=== PATIENT | female | born 1975 | race Caucasian/White ===

== ENCOUNTER → 2016-09-15 | Outpatient (CLI) | payer BC ==
[~2016-09-15] MED LIST: ADVAIR IH; CELEXA20 MG PO; XANAX0.5 MG PO
== END ==
LOC: LAB 15:44
DX: D64.9 Anemia, unspecified (principal)

== ENCOUNTER → 2016-11-24 | Outpatient (CLI) | payer BC | LOC: LAB 12:15 | DX: N92.1 Excessive and frequent menstruation with irregular cycle (principal); D50.0 Iron deficiency anemia secondary to blood loss (chronic) ==

== ENCOUNTER → 2018-07-25 | Outpatient (CLI) | payer OTHER ==
[2018-07-18 11:04] VITALS: BP 120/76
[~2018-07-25] MED LIST changes: +MAXALT MLT10 MG PO; +MECLIZINE PO; +MIRALAX 255 GM255 GM PO; +PHENERGAN25 M4 RC
[2018-07-25 16:18] LABS: HEMATOCRIT 35.2 % (37.0-47.0); HEMOGLOBIN 10.5 g/dL (12.5-16.0); MEAN PLATELET VOLUME 10.7 fl (7.4-10.4); RED BLOOD COUNT 4.9 M/mm3 (4.10-5.30); WHITE BLOOD COUNT 9.6 K/mm3 (4.8-10.8)
[2018-07-25 16:26] LABS: CALCIUM 9.2 mg/dL (8.4-10.2); POTASSIUM 3.6 mmol/L (3.6-5.0); RED CELL DISTRIBUTION WIDTH 27.9 % (11.5-14.5)
== END ==
LOC: LAB 15:49
PROVIDERS: Nurse Practitioner Primary Care
DX: D64.9 Anemia, unspecified (principal)

== ENCOUNTER → 2018-08-08 | Outpatient (CLI) | payer SELFPAY ==
[2018-07-18 11:04] VITALS: BP 120/76
[2018-08-08 11:55] LABS: EOS # 0.2 (0.04-0.40); EOS % 1.5 % (1.0-5.0); HEMATOCRIT 35.2 % (37.0-47.0); HEMOGLOBIN 10.7 g/dL (12.5-16.0); LYMPH# 1.8 (1.50-4.00); MEAN CELL VOLUME 75 fl (78-100); MEAN CORPUSCULAR HGB CONC 30 g/dL (33-37); MEAN PLATELET VOLUME 9.9 fl (7.4-10.4); MONO # 0.7 (0.20-0.80); NEU # 7.6 (1.40-6.50); PLATELET COUNT 417 K/mm3 (130-400); RED BLOOD COUNT 4.69 M/mm3 (4.10-5.30); WHITE BLOOD COUNT 10.2 K/mm3 (4.8-10.8)
[2018-08-08 12:14] LABS: ALBUMIN 4.4 g/dL (3.5-5.0); CALCIUM 9.3 mg/dL (8.4-10.2); POTASSIUM 4.2 mmol/L (3.6-5.0); TOTAL BILIRUBIN 0.6 mg/dL (0.2-1.3); TOTAL PROTEIN 7.1 g/dL (6.3-8.2)
[2018-08-08 12:45] LABS: MEAN CORPUSCULAR HEMOGLOBIN 23 pg (27-31)
[2018-08-08 13:29] LABS: PH-URINE 5.5 (5.0 - 8.0); URINE APPEARANCE CLEAR; URINE BILIRUBIN NEGATIVE (NEGATIVE); URINE COLOR YELLOW; URINE GLUCOSE NEGATIVE (NEGATIVE); URINE KETONE NEGATIVE (NEGATIVE); URINE PROTEIN(semi-quant) TRACE mg/dL (NEGATIVE)
[2018-08-08 13:30] LABS: URINE BLOOD NEGATIVE (NEGATIVE); URINE LEUKOCYTE ESTERASE NEGATIVE (NEGATIVE); URINE NITRATE NEGATIVE (NEGATIVE); URINE UROBILINOGEN NORMAL (NORMAL); URINE WBC 0-1 /hpf (0-3)
== END ==
LOC: LAB 11:20
PROVIDERS: Physician Assistant
DX: Z01.812 Encounter for preprocedural laboratory examination (principal); N92.0 Excessive and frequent menstruation with regular cycle

== ENCOUNTER → 2019-03-27 | Outpatient (CLI) | payer SELFPAY ==
[2018-07-18 11:04] VITALS: BP 120/76
== END ==
LOC: RAD 09:44
DX: S99.922A Unspecified injury of left foot, initial encounter (principal)

== ENCOUNTER 2021-08-24 12:10 | Emergency (ER) | payer SELFPAY ==
[~2021-08-24] VITALS: Ht 170.2 cm; Wt 72.2 kg
[2021-08-24] MEDS ORDERED: SYMBICORT1 AE3 IH (12:38)
[2021-08-24] MEDS ORDERED: PROAIR HFA0.09 MG/AC IH (12:38)
[2021-08-24 13:11] LABS: BASO # 0.01 K/mm3 (0.02-0.10); EOS # 0.01 K/mm3 (0.04-0.40); EOS % 0.1 % (1.0-5.0); HEMATOCRIT 40.5 % (37.0-47.0); HEMOGLOBIN 13.6 g/dL (12.5-16.0); LYMPH# 0.89 K/mm3 (1.50-4.00); MEAN CELL VOLUME 90 fl (78-100); MEAN CORPUSCULAR HEMOGLOBIN 30 pg (27-31); MEAN CORPUSCULAR HGB CONC 34 g/dL (33-37); MEAN PLATELET VOLUME 9.6 fl (7.4-10.4); MONO # 1.08 K/mm3 (0.20-0.80); NEU # 4.93 K/mm3 (1.40-6.50); PLATELET COUNT 239 K/mm3 (130-400); RED BLOOD COUNT 4.51 M/mm3 (4.10-5.30); RED CELL DISTRIBUTION WIDTH 11.7 % (11.5-14.5); WHITE BLOOD COUNT 6.9 K/mm3 (4.8-10.8)
[2021-08-24 13:21] LABS: ALBUMIN 4.1 g/dL (3.5-5.0); POTASSIUM 3.4 mmol/L (3.5-5.1); SODIUM 139 mmol/L (136-145)
[2021-08-24 13:22] LABS: CALCIUM 8.9 mg/dL (8.3-10.5)
[2021-08-24 13:23] LABS: GLUCOSE 92 mg/dL (65-105)
[2021-08-24 13:24] LABS: PARTIAL THROMBOPLASTIN TIME 26.4 SECONDS (21.0-32.0); PROTHROMBIN TIME 10.1 SECONDS (9.0-12.0); TOTAL PROTEIN 6.9 g/dL (6.4-8.3)
[2021-08-24 13:25] LABS: CARBON DIOXIDE 23 mmol/L (22-29); TOTAL BILIRUBIN 0.5 mg/dL (0.2-1.2)
[2021-08-24 13:29] LABS: AST-SGOT 19 U/L (5-34)
[2021-08-24 13:30] LABS: ALT/SGPT 18 U/L (0-55)
[2021-08-24 13:37] LABS: TROPONIN-I < 0.03 ng/mL (<0.030)
[2021-08-24 14:49] LABS: URINE COLOR YELLOW
[2021-08-24 14:50] LABS: URINE APPEARANCE CLEAR; URINE BILIRUBIN NEGATIVE (NEGATIVE); URINE BLOOD 50 ery/uL (NEGATIVE); URINE GLUCOSE NEGATIVE (NEGATIVE); URINE KETONE 3+ (NEGATIVE); URINE LEUKOCYTE ESTERASE TRACE (NEGATIVE); URINE MUCUS PRESENT (NOT PRESENT); URINE NITRATE NEGATIVE (NEGATIVE); URINE PROTEIN(semi-quant) TRACE mg/dL (NEGATIVE); URINE UROBILINOGEN 1 mg/dL (NORMAL)
[2021-08-24 14:55] LABS: D-DIMER 0.24 mg/L FEU (0.15-0.50)
[2021-08-24 16:00] VITALS: BP 122/79
[2021-08-24] MEDS ORDERED: BACTRIM DS TAB1 EACH PO (16:14)
== END 2021-08-24 16:10 | disposition home or self-care (01) ==
LOC: ED 12:10
PROVIDERS: Nurse Practitioner
DX: U07.1 COVID-19 (principal); N39.0 Urinary tract infection, site not specified; J45.40 Moderate persistent asthma, uncomplicated; Z79.899 Other long term (current) drug therapy
CPT/HCPCS: J0696